=== PATIENT | female | born 1945 | race Caucasian/White ===

== ENCOUNTER 2020-01-22 07:28 | Day surgery (SDC) | payer MEDICARE ==
[2020-01-19 14:10] LABS: ALANINE AMINOTRANSFERASE 31 U/L (12-78); ALBUMIN 3.9 g/dL (3.4-5.0); ANION GAP 7 mmol/L (5-15); CALCIUM 9.2 mg/dL (8.5-10.1); CHLORIDE 105 mmol/L (98-107); CREATININE 0.92 mg/dL (0.55-1.02)
[2020-01-19 14:12] LABS: ALKALINE PHOSPHATASE 76 U/L (45-117); BILIRUBIN,TOTAL 0.6 mg/dL (0.2-1.0); TOTAL PROTEIN 7.3 g/dL (6.4-8.2)
[~2020-01-22] VITALS: Ht 165.1 cm; Wt 72.7 kg
[~2020-01-22 07:28] MED LIST: ASPI81TA45 PO; CALCIUM PO; LEVO100T5 PO; LISI1TAB23 PO; ONE A DAY PO
[2020-01-22] MEDS ORDERED: BUPIVACAINE/PF-EPI 0.5% 1:200K ONE (07:34)
[2020-01-22] MEDS ORDERED: LIDOCAINE 1%-EPI 1:100K, 20ML ONE ×2 (07:34→17:04)
[2020-01-22] MEDS ORDERED: LACTATED RINGERS 1,000 ML IV SCH (07:38)
[2020-01-22] MEDS ORDERED: CHLORHEXIDINE 15 ML UDC MM STA (07:39)
[2020-01-22] MEDS ORDERED: MIDAZOLAM 1 MG/ML, 2ML ONE (07:54)
[2020-01-22] MEDS ORDERED: FENTANYL PF 100 MCG/2ML ONE (07:54)
[2020-01-22] MEDS ORDERED: ROCURONIUM 10 MG/ML,10ML ONE (08:48)
[2020-01-22] MEDS ORDERED: LIDOCAINE/PF 1%-EPI 1:200K, 30 ML ONE (09:16)
[2020-01-22] MEDS ORDERED: CEFAZOLIN 1,000 MG ONE (09:26)
[2020-01-22] MEDS ORDERED: ONDANSETRON 2MG/ML, 2ML ONE (09:26)
[2020-01-22] MEDS ORDERED: PROPOFOL 10 MG/ML, 20ML ONE (09:26)
[2020-01-22] MEDS ORDERED: LIDOCAINE-MPF 2% ,5ML ONE (09:26)
[2020-01-22] MEDS ORDERED: BUPIVACAINE/PF 0.5% ONE (09:26)
[2020-01-22] MEDS ORDERED: DEXAMETHASONE 4 MG/ML, 1ML ONE (09:26)
[2020-01-22] MEDS ORDERED: SUCCINYLCHOLINE 20 MG/ML, 10ML ONE (09:27)
[2020-01-22] MEDS ORDERED: OXYcodone 5 MG/5 ML ORAL.SOL UDC PO PRN (09:30)
[2020-01-22] MEDS ORDERED: MIDAZOLAM 1 MG/ML, 2ML IV PRN (09:30)
[2020-01-22] MEDS ORDERED: ACETAMINOPHEN 325 MG TABLET PO PRN (09:30)
[2020-01-22] MEDS ORDERED: FENTANYL PF 100 MCG/2ML IV PRN (09:30)
[2020-01-22] MEDS ORDERED: LABETALOL 5MG/ML, 20ML IV PRN (09:30)
[2020-01-22] MEDS ORDERED: ALBUTEROL SULFATE 2.5 MG/3 ML NPPB PRN (09:30)
[2020-01-22] MEDS ORDERED: MEPERIDINE/PF 25MG/0.5ML IVPush PRN (09:30)
[2020-01-22] MEDS ORDERED: PROMETHAZINE 25 MG/ML, 1ML IVPush PRN (09:30)
[2020-01-22] MEDS ORDERED: HYDROmorphone 1 MG/ML, 1ML INJ IVPush PRN (09:30)
[2020-01-22] MEDS ORDERED: hydrALAzine 20 MG/ML, 1ML IV PRN (09:30)
[2020-01-22] MEDS ORDERED: KETOROLAC 30 MG/1 ML ONE (10:53)
== END 2020-01-22 11:40 | disposition home or self-care (01) ==
LOC: OUT 07:28
PROVIDERS: ATTEND Orthopaedic Surgery
DX: M75.121 Complete rotator cuff tear or rupture of right shoulder, not specified as traumatic (principal); Z11.59 Encounter for screening for other viral diseases; M75.102 Unspecified rotator cuff tear or rupture of left shoulder, not specified as traumatic; G89.18 Other acute postprocedural pain; S46.111A Strain of muscle, fascia and tendon of long head of biceps, right arm, initial encounter; M19.011 Primary osteoarthritis, right shoulder; M19.012 Primary osteoarthritis, left shoulder; M75.41 Impingement syndrome of right shoulder; M75.42 Impingement syndrome of left shoulder; M94.211 Chondromalacia, right shoulder; M65.811 Other synovitis and tenosynovitis, right shoulder; M75.51 Bursitis of right shoulder; I10 Essential (primary) hypertension; E78.5 Hyperlipidemia, unspecified; E07.9 Disorder of thyroid, unspecified; Z79.82 Long term (current) use of aspirin; Z79.890 Hormone replacement therapy; Z79.899 Other long term (current) drug therapy; Z82.61 Family history of arthritis; X58.XXXA Exposure to other specified factors, initial encounter; Y93.89 Activity, other specified; Y92.89 Other specified places as the place of occurrence of the external cause; Y99.8 Other external cause status
CPT/HCPCS: 29823; 29824; 29826; 29827; 36415; 64415; 80053; 87635; 93005; C1713; J0330; J0690; J1100; J2250; J2405; J2704; J3010; J3490; J7120